=== PATIENT | male | born 1990 | race Hispanic/Latino ===

== ENCOUNTER 2020-11-05 23:08 | Emergency (ER) | payer OTHER, SELFPAY ==
[2020-11-05] VITALS (7 sets, daily range): BP systolic 114–118; BP diastolic 82–87; PULSE 67–78; RESP 15–34; TEMP 36.8; O2SAT 98–100
--- NOTE | ~2020-11-05 | CT_ITS ---
EXAMINATION: CT brain wo con, CT cervical spine wo con EXAM DATE: 11/06/2020 00:08 (accession [id number]), 11/06/2020 00:09 (accession [id number]) INDICATION: Head injury status post fall from horse. Posterior head injury, neck and back pain. TECHNIQUE: Spiral CT of the head was performed without contrast. Axial, coronal and sagittal images were reviewed. Spiral CT of the cervical spine was performed without contrast. Axial images were rev iewed. Coronal and sagittal reformatted images were also reviewed. The dose-length product (DLP) fo r this examination was 605.33 mGy-cm. The exposure was tailored according to patient size, and itera tive reconstruction (ASIR) was used as additional dose reduction technique. There is no prior study for comparison. FINDINGS: HEAD CT: There is no acute intraparenchymal hemorrhage. No evidence of intraparenchymal brain mass lesion. No evidence of acute infarction. There is no mass effect or midline shift. There is no obstr uctive hydrocephalus suspected. There are no extra-axial collections. There are no acute calvarial fractures. The orbits are unremarkable. Soft tissue is unremarkable. The visualized sinuses and ma stoid air cells are well aerated. CERVICAL CT: There is no evidence of acute cervical fracture. The odontoid process is intact. Pre-d ens space is normal. Prevertebral soft tissue is normal. There are no soft tissue abnormalities sheryl ntified. There is no disc space widening or traumatic vertebral body subluxation suspected. Vertebr al body and disc heights are well-maintained. A detailed level by level evaluation of spondylosis c an be added as addendum if requested. IMPRESSION: 1. No acute intracranial findings or cervical fracture. Reviewed, dictated and finalized at location A. IMPRESSION: 1. No acute intracranial findings or cervical fracture.
--- NOTE | ~2020-11-05 | CT_ITS ---
EXAMINATION: CT chest abdomen pelvis wo con EXAM DATE: 11/06/2020 00:09 INDICATION: Fall from horse, back pain. TECHNIQUE: Spiral CT of the chest, abdomen and pelvis was performed and Axial, coronal and sagittal images chest, abdomen and pelvis were reviewed. Coronal maximum intensity pixel images of chest revi ewed. The dose-length product (DLP) for this examination was 510.05 mGy-cm. The exposure was tailor ed according to patient size (auto mA exposure control), and iterative reconstruction (ASIR) was used as additional dose reduction technique. There is no prior study for comparison. FINDINGS: Questionable minimal superior endplate acute compression fractures at T3 and T4 vertebral b odies. The vertebral bodies are aligned in the AP dimension. CHEST: The lungs are clear. There are no pleural or pericardial effusions. Tracheobronchial tree is patent. There is no mediastinal, hilar or axillary lymphadenopathy. There is no pneumothorax. Heart normal in size. No evidence of coronary arterial calcification. ABDOMEN PELVIS: The liver, spleen, adrenal glands and pancreas are unremarkable. Gallbladder is unre markable. No biliary obstruction. There is no nephrolithiasis or hydronephrosis. The prostate is unremarkable. The bladder is unremarkable. There is no retroperitoneal or pelvic lymphadenopathy. The appendix is normal. The stomach and small bowel are unremarkable. There is expected amount of c olonic stool. No free intraperitoneal gas. There are no osteoblastic or osteolytic lesions identi fied. IMPRESSION: 1. Possible minimal T3-T4 superior endplate acute compressions. 2. No acute intra-abdominal findings. Reviewed, dictated and finalized at location A.
--- NOTE | ~2020-11-05 | XR_ITS ---
EXAMINATION: XR elbow LT min 3V EXAM DATE: 11/06/2020 00:11 INDICATION: Initial encounter following injury, with pain of the left elbow. Fall. TECHNIQUE: Left elbow frontal, lateral with flexion, and oblique projections obtained and reviewed. There is no prior study for comparison. FINDINGS: Left elbow anterior humeral line intact. There are no acute fractures or dislocations sheryl ntified. There is no subcutaneous gas. The soft tissue is unremarkable. There are no radiopaque f oreign bodies. IMPRESSION: No acute osseous findings. Reviewed, dictated and finalized at location A. IMPRESSION: No acute osseous findings.
[2020-11-06] VITALS (19 sets, daily range): BP systolic 104–119; BP diastolic 67–95; PULSE 61–76; RESP 12–29; O2SAT 94–100
--- NOTE | 2020-11-06 02:45 | ED.GENADULT ---
HPI - General Adult General Chief complaint: Fall Stated complaint: left elbow Time Seen by Provider: 11/05/20 23:43 History of Present Illness HPI narrative: Patient is a 29-year-old gentleman who presents the emergency department with chief complaint of left elbow pain and back pain. Patient reports he was on a horse and was thrown off the horse. The patient reports he was wearing a helmet landed on his back reports to thoracic back pain neck pain and reports that he has a lump on the back of his head the patient states he may have had a brief loss of consciousness reports that he has pain in his left elbow. Patient states the pain is worse with movement and improved with rest. Patient denies any focal neurological deficit the patient is GCS 15 Related Data Allergies Allergy/AdvReac Type Severity Reaction Status Date / Time No Known Allergies Allergy Verified 11/05/20 23:12 Review of Systems Review of Systems: Narrative: A 10 system review of systems was completed on the patient and is negative except for what is stated in the HPI. Nursing and ancillary documentation was reviewed. [facility] Social History Social History Gender identity (if verbalized by the patient): Male Sexual Orientation (if Verbalized by the Patient): Straight or Heterosexual Exam Narrative: Exam Narrative: GENERAL: Well-appearing, well-nourished, and in no acute distress. HEAD: Normocephalic, atraumatic. EYES: PERRLA and EOMI. ENT: Nares clear, no rhinorrhea or epistaxis. Mucous membranes moist. NECK: Supple. Midline C-spine tenderness present CHEST: Clear to auscultation. No respiratory distress. HEART: Regular rate and rhythm. No murmur heard. Normal peripheral pulses. ABDOMEN: Soft, nontender, nondistended, normal active bowel sounds. EXTREMITIES: Normal range of motion. No edema. There is tenderness to palpation of the left elbow Back: There is tenderness along the midline of the thoracic spine SKIN: Warm, dry, no rash. NEURO: No focal deficits. Alert and oriented x3. PSYCH: Normal mood and affect. Course Course Emergency Course: Due to the mechanism of injury Vital Signs Vital signs: Vital Signs Temperature 36.8 C 11/05/20 23:05 Pulse Rate 78 11/05/20 23:05 Respiratory Rate 18 11/05/20 23:05 Blood Pressure 118/87 11/05/20 23:05 Pulse Oximetry 100 11/05/20 23:05 Temperature 36.8 C 11/05/20 23:05 Pulse Rate 67 11/06/20 01:16 Respiratory Rate 27 H 11/06/20 01:16 Blood Pressure 107/72 11/06/20 01:16 Pulse Oximetry 98 11/06/20 01:16 Medical Decision Making Vital Signs Vital Signs: Vital Signs Temperature 36.8 C 11/05/20 23:05 Pulse Rate 78 11/05/20 23:05 Respiratory Rate 18 11/05/20 23:05 Blood Pressure 118/87 11/05/20 23:05 Pulse Oximetry 100 11/05/20 23:05 Temperature 36.8 C 11/05/20 23:05 Pulse Rate 67 11/06/20 01:16 Respiratory Rate 27 H 11/06/20 01:16 Blood Pressure 107/72 11/06/20 01:16 Pulse Oximetry 98 11/06/20 01:16 Discharge Plan Discharge Clinical Impression: Contusion of left elbow Qualifiers: Encounter type: initial encounter Qualified Code(s): S50.02XA - Contusion of left elbow, initial encounter Closed compression fracture of thoracic vertebra Qualifiers: Encounter type: initial encounter Qualified Code(s): S22.000A - Wedge compression fracture of unspecified thoracic vertebra, initial encounter for closed fracture Patient Disposition: Home, Self-Care Condition: Stable Instructions: Antibiotic Form, Vertebral Compression Fracture (ED), How to Use a Sling (ED), Elbow Sprain (ED) Additional Instructions: The CT scan showed a questionable small compression fracture of T3 and T4. You may take ibuprofen for the discomfort. Please follow-up with Dr. Esposito with [facility] ortho spine in 1 to 2 weeks. Their phone number is [phone] please call to sc
== END 2020-11-06 03:17 | disposition home or self-care (01) ==
PROVIDERS: Emergency Provider Emergency Medicine
DX: S22.038A Other fracture of third thoracic vertebra, initial encounter for closed fracture (principal); S22.048A Other fracture of fourth thoracic vertebra, initial encounter for closed fracture; S50.02XA Contusion of left elbow, initial encounter; V80.010A Animal-rider injured by fall from or being thrown from horse in noncollision accident, initial encounter
CPT/HCPCS: 70450; 71250; 72125; 73080; 74176; 99284; A4565